=== PATIENT | female | born 1950 | race Caucasian/White ===

== ENCOUNTER → 2023-06-03 | Outpatient (CLI) | payer OTHER | END | disposition home or self-care (01) | LOC: RAH 08:46 | PROVIDERS: ATTEND Internal Medicine | DX: Z13.6 Encounter for screening for cardiovascular disorders (principal) | CPT/HCPCS: 75571 ==

== ENCOUNTER → 2025-08-09 | Outpatient (CLI) | payer OTHER ==
--- NOTE | 2025-08-09 18:36 | HMCSR ---
APPROVED REPORT EXAM: Two-dimensional and M-mode echocardiogram with Doppler and color Doppler. INDICATION ICD: R06.02 Shortness of breath 2D Dimensions RVDd 3.1 cm LVEF(%) 61.4 (>50%) LVED Vol(simp.) 43.0 mL IVSd 0.7 (0.7-1.1cm) FS(%) 32 % LVES Vol(simp.) 15.0 mL LVDd 3.6 (3.8-5.6cm) LA (2D) 2.6 (1.6-4.0cm) LVEF(%, simp.) 65 % PWd 0.6 (0.7-1.1cm) Ao Root(2D) 2.5 (2.0-3.7cm) IVSs 0.8 cm LVOT diam 1.6 (1.8-2.4cm) LVDs 2.4 (2.5-4.0cm) IVC diam 1.9 cm PWs 1.1 cm M-Mode Dimensions EPSS 0.5 cm LA (MM) 3.5 (1.6-4.0cm) Ao Root(MM) 2.4 (2.0-3.7cm) Aortic Valve AoV Vmax 1.3 m/s Ao Peak GR 6.9 mmHg LVOT Vmax 1.1 m/s AoV VTI 0.2 m Ao Mean GR 3.3 mmHg LVOT VTI 0.21 m MARY (VMAX) 1.60 cm2 MARY (VTI) 1.7 cm2 Mitral Valve MV E Vmax 77.8 cm/s DECEL Time 182 ms MV A Vmax 84.6 cm/s P 1/2 T 36 ms E/A ratio 0.9 MVA (PHT) 6.1 cm2 TDI E/E' Medial 10.0 E/E' Lateral 8.8 Medial E' Peak V 7.79 cm/s Lateral E' Peak V 8.84 cm/s Pulmonary Valve PV Vmax 0.8 m/s PV Mean GR 1.7 mmHg PV Peak GR 2.8 mmHg Tricuspid Valve TR Vmax 2.2 m/s RAP (EST) 3 mmHg RVSP 21.6 mmHg TR Peak GR 18.6 mmHg Left Ventricle The left ventricle is normal size. There is normal left ventricular wall thickness. LVEF is 60-65%. The left ventricular diastolic function is normal. Right Ventricle The right ventricle is normal size. The right ventricular systolic function is normal. Atria The left atrium size is normal. The right atrium size is normal. Aortic Valve The aortic valve is trileaflet normal in structure. Trace aortic regurgitation is present. There is no aortic valvular stenosis. Mitral Valve The mitral valve is normal in structure. There is trace mitral valve regurgitation noted. There is no mitral valve stenosis. Tricuspid Valve The tricuspid valve is normal in structure. There is trace tricuspid valve regurgitation noted. Pulmonic Valve The pulmonary valve is normal in structure. There is no pulmonic valvular regurgitation. Great Vessels The aortic root is normal in size. The IVC is normal in size and collapses >50% with inspiration. Pericardium There is no pericardial effusion. Other Information Quality : Adequate Conclusion The left ventricle is normal size. LVEF is 60-65%. The left ventricular diastolic function is normal. The right ventricle is normal size. The right ventricular systolic function is normal. The left atrium size is normal. The right atrium size is normal. No valvular pathology. There is no pericardial effusion.
== END | disposition home or self-care (01) ==
LOC: RAH 13:45
PROVIDERS: ATTEND Internal Medicine
DX: R06.02 Shortness of breath (principal)
CPT/HCPCS: 93306